=== PATIENT | female | born 1990 | race Caucasian/White ===

== ENCOUNTER 2021-09-24 14:14 | Emergency (ER) | payer OTHER ==
[~2021-09-24 14:14] MED LIST: BACTROBAN OINT22 GM EXT; COLACE 100MG C100 MG PO; Voltaren Gel 1 % TOP
[2021-09-24 14:56] LABS: BORDETELLA PARAPERTUSSIS Not Detected (Not Detectd); BORDETELLA PERTUSSIS Not Detected (Not Detectd); CHLAMYDIA PNEUMONIAE Not Detected (Not Detectd); CORONAVIRUS HKU1 Not Detected (Not Detectd); CORONAVIRUS NL63 Not Detected (Not Detectd); CORONAVIRUS OC43 Not Detected (Not Detectd); CORONOAVIRUS 229E Not Detected (Not Detectd); HUMAN METAPNEUMOVIRUS Not Detected (Not Detectd); HUMAN RHINOVIRUS/ENTEROVIRUS Not Detected (Not Detectd); INFLUENZA A Not Detected (Not Detectd); INFLUENZA B Not Detected (Not Detectd); MYCOPLASMA PNEUMONIAE Not Detected (Not Detectd); PARAINFLUENZA VIRUS 1 Not Detected (Not Detectd); PARAINFLUENZA VIRUS 2 Not Detected (Not Detectd); PARAINFLUENZA VIRUS 3 Not Detected (Not Detectd); PARAINFLUENZA VIRUS 4 Not Detected (Not Detectd); RESPIRATORY SYNCYTIAL VIRUS Not Detected (Not Detectd)
[2021-09-24 16:08] LABS: SARS-CoV-2 NOT DETECTED (Not Detectd)
[2021-09-24] MEDS ORDERED: TESSALON PERLE100 MG PO (16:26)
[2021-09-24] MEDS ORDERED: AZITHROMYCIN1 GM PO (16:26)
[2021-09-24] MEDS ORDERED: PROAIR HFA8.5 GM INH (16:26)
== END 2021-09-24 16:33 | disposition home or self-care (01) ==
LOC: ER1 14:14
PROVIDERS: Emergency Medicine
DX: R05.9 Cough, unspecified (principal); R09.81 Nasal congestion; Z20.822 Contact with and (suspected) exposure to COVID-19; E03.9 Hypothyroidism, unspecified
CPT/HCPCS: 71046; 87633; 99283